=== PATIENT | male | born 1995 | race Caucasian/White ===

== ENCOUNTER 2019-06-28 16:44 | Inpatient (IN) | payer OTHER ==
[2019-06-28] MEDS ORDERED: Acetaminophen TAB* 325 MG PO PRN (17:18)
[2019-06-28] MEDS ORDERED: Al Hydrox/Mg Hydrox/Simet LIQ* 30 ML UDC PO PRN (17:18)
[2019-06-28] MEDS ORDERED: chlorproMAZINE TAB* 50 MG Q6H PRN AGITATION PO (17:18)
[2019-06-28] MEDS ORDERED: Divalproex ER TAB(*) 500 MG ONE (20:50)
[2019-06-28] MEDS ORDERED: Divalproex ER TAB(*) 500 MG PO SCH (21:00)
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
[2019-06-29] MEDS ORDERED: OLANzapine TAB* 10 MG PO PRN (10:08)
[2019-06-29] MEDS: Vitamin THERAPEUTIC TAB PO SCH (10:37)
[2019-06-29] MEDS: Thiamine TAB* 100 MG TAB PO SCH (11:30)
[2019-06-29 13:29] LABS: Urine Benzodiazepine Screen None Detected (None Detect); Urine Opiates Screen None Detected (None Detect)
[2019-06-29] MEDS: Divalproex ER TAB(*) 500 MG PO SCH (21:08)
[2019-06-29] MEDS: Lithium Carbonate TAB* 300 MG PO SCH (21:09)
[2019-06-30 07:53] LABS: HDL Cholesterol 45.9 mg/dL
[2019-06-30] MEDS: ARIPiprazole TAB* 5 MG PO SCH (08:00)
[2019-06-30] MEDS: Thiamine TAB* 100 MG TAB PO SCH (08:00)
[2019-06-30] MEDS: Vitamin THERAPEUTIC TAB PO SCH (08:01)
[2019-06-30] MEDS: Lithium Carbonate TAB* 300 MG PO SCH ×2 (08:01→19:46)
[2019-06-30] MEDS ORDERED: CMCS: diPHENhydraMINE CREAM 2%(NF) 28 gm TUBE TOPICAL PRN (08:44)
--- NOTE | 2019-06-30 10:11 | PN ---
Subjective - Subjective Date of Service: 06/30/19 Service Type: 04589 Hosp care 35 min high complexity Subjective: Nursing Report: Patient was visible on unit, Slept 7hrs overnight. Ate breakfast this morning" CC: "I had a heart attack during my last hospitalization" This patient was seen and evaluated today. She reported having chest pain and tightness and shortness of breath. Patient provided this contract writer with a letter that outlined various coping strategies and asked to contact her cousin [facility] [phone] who she plans to stay with upon discharge.These included reading , writing ,drawing, fishing , signing. She reported some itching and redness of the face. She asked about possible discharge before the end of the week. She denied side effects from medication. Objective - General Observations Appearance: Disheveled Appears Stated Age: Yes Stature: WNL Posture: Slumped Eye Contact: Average Behavior/Activity: Peculiar - Interaction Observations Attitude Towards Examiner: Cooperative Stated Mood: Irritable Affect: Labile Speech Pattern/Tone: Excessive Thought Process: Over Inclusive Perception: WNL Thought Content: Preoccupation/Ruminations Thought Process: Lethality: Paranoid Ideation Hallucination Type: Denies Delusion Type: Somatic - Cognitive Function Orientation: A&O x 4 Level of Consciousness: Awake Cognition: Impaired Fund of Knowledge, Impaired Writing Estimated Intelligence: MR Range - Medication Compliance Cooperative with Inpatient Medication Regimen: Yes - Group Participation Participates in Group Activities: Partial Assessment - Assessment Merits Inpatient Hospitalization: For Immediate Safety Clinical Impression: 23 year old Male who identifies as a female, with a history of Bipolar disorder,gender dysphoria, PTSD was transferred to from [facility] to [facility] for suicidal ideation with plan to jump from [facility]. Plan - Plan Treatment Plan: Name: KEVIN MULLEN Birthdate: 1995 [id number] # Q15 minute observation. # The patient requires psychiatric inpatient admission at this time to assure safety, receive treatment and work toward stabilization. # Labs/ documents reviewed from paperwork at [facility]. # Hospitalist consult for medical management # EKG ordered # Benadryl cream ordered for pruritus # Obtained collateral information from cousin. # Continue [place] 150mg BID. # Valproic acid level 28 #Abilify 5mg po daily # Declined alcohol rehabilitation resources and treatment # Prior hospital discharge paperwork was provided by the patient and discharge medications included Valproic acid 1000mg qhs and Haldol 5mg qhs. # Collaboration with Vice President Client Services, Vivi Fuentes #Goals before discharge include: Psychiatric Stabilization Tentative Discharge: Pending hospital course and response to treatment Vital Signs Temp Pulse Resp BP Pulse Ox 97.2 F 48 16 117/58 100 06/30/19 08:00 06/30/19 08:00 06/30/19 09:07 06/30/19 08:00 06/30/19 08:00 Continued Medication Management: Continue Outpt Medication Medications: Current Medications Al Hydrox/Mg Hydrox/Simethicone (Maalox Plus*) 30 ml PO Q4H PRN PRN Reason: INDIGESTION Aripiprazole (Abilify Tab*) 5 mg PO DAILY [facility] Last Admin: 06/30/19 08:00 Dose: 5 mg Diphenhydramine HCl (Benadryl Po*) 50 mg PO BEDTIME CONCHA Divalproex Sodium (Depakote Er Tab(*)) 1,000 mg PO BEDTIME CONCHA Last Admin: 06/29/19 21:08 Dose: 1,000 mg [place] Carbonate (S[place] Carbonate Tab*) 150 mg PO BID CONCHA Last Admin: 06/30/19 08:01 Dose: 150 mg Multivitamins (Theragran Tab*) 1 tab PO DAILY CON[facility] Last Admin: 06/30/19 08:01 Dose: 1 tab Olanzapine (Zyprexa Tab*) 10 mg PO Q8H PRN PRN Reason: AGITATION Thiamine HCl (Vitamin B-1 Tab*) 200 mg PO DAILY [facility] Last Admin: 06/30/19 08:00 Dose: 200 mg Zinc Acetate/Diphenhydramine (Banophen 2 % Cream (Nf)) 1 applic TOPICAL TID PRN ; Protocol PRN Reason: PRURITIS - Discharge Plan Discharge Plan: Inpatient Hospitalization
[2019-06-30 11:34] LABS: Troponin I 0.01 ng/mL (<0.03)
[2019-06-30 11:35] LABS: ALT 14 U/L (7-52); AST 15 U/L (13-39); Albumin 4.3 g/dL (3.2-5.2); Albumin/Globulin Ratio 1.5 (1-3); Alkaline Phosphatase 59 U/L (34-104); Anion Gap 3 mmol/L (2-11); BUN/Creatinine Ratio 19.5 (8-20); Blood Urea Nitrogen 15 mg/dL (6-24); C Reactive Protein < 1.00 mg/L (<8.01); CO2 Carbon Dioxide 31 mmol/L (22-32); Calcium 9.6 mg/dL (8.6-10.3); Chloride 105 mmol/L (101-111); EGFR African American 154.3 (>60); EGFR Non-African American 127.5 (>60); Globulin 2.8 g/dL (2-4); Glucose 72 mg/dL (70-100); Potassium 4.2 mmol/L (3.5-5.0); Sodium 139 mmol/L (135-145); Total Protein 7.1 g/dL (6.4-8.9)
[2019-06-30 11:36] LABS: ABS Eosinophils 0.2 10^3/ul (0-0.6); ABS Lymphocytes 1.9 10^3/ul (1.0-4.8); ABS Monocytes 0.5 10^3/ul (0-0.8); ABS Neutrophils 3.5 10^3/ul (1.5-7.7); Eosinophil % 2.8 %; Hematocrit 40 % (42-52); Lymphocyte % 31.2 %; Mean Corpuscular HGB Conc 35 g/dL (31-36); Mean Corpuscular Hemoglobin 32 pg (27-31); Mean Corpuscular Volume 90 fL (80-94); Mean Platelet Volume 7.4 fL (7.4-10.4); Nucleated Red Blood Cells % 0.1; Platelet Count 275 10^3/uL (150-450); Red Blood Count 4.43 10^6 /uL (4.18-5.48); Red Cell Distribution Width 14 % (10-15)
[2019-06-30 14:37] LABS: Troponin I 0.04 ng/mL (<0.03)
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
[2019-06-30 18:39] LABS: Troponin I 0.03 ng/mL (<0.03)
[2019-06-30] MEDS: Divalproex ER TAB(*) 500 MG PO SCH (19:46)
[2019-06-30] MEDS ORDERED: diPHENhydraMINE PO* 50 MG PO SCH (21:00)
[2019-07-01 08:21] VITALS: BP 120/70
[2019-07-01] MEDS: Vitamin THERAPEUTIC TAB PO SCH (08:24)
[2019-07-01] MEDS: Lithium Carbonate TAB* 300 MG PO SCH (08:24)
[2019-07-01] MEDS: ARIPiprazole TAB* 5 MG PO SCH (08:25)
[2019-07-01] MEDS: Thiamine TAB* 100 MG TAB PO SCH (08:25)
--- NOTE | 2019-07-01 10:17 | PN ---
Subjective - Subjective Date of Service: 07/01/19 Service Type: [id number] Hosp care 35 min high complexity Subjective: Nursing Report: Patient was visible on unit, no behavioral incidents. Slept 6.75hrs overnight. CC: "I want to be discharged This patient was seen and evaluated today. The patient provided permission to contact Dr. Betts. The patient reported that no family member is available to confirm placement. The patient declined long acting anti-psychotic injection. The patient said that she has a that she needs to attend so she needs to be discharged today. She reported having adequate appetite and sleep. Per nursing no behavioral issues or overnight events reported. Patient reported that she is tolerating medications without side effects. The patient denied chest pain, shortness of breath, fever. Assessment - Assessment Merits Inpatient Hospitalization: For Immediate Safety Clinical Impression: 23 year old Male who identifies as a female, with a history of Bipolar disorder,gender dysphoria, PTSD was transferred to from [facility] to [facility] for suicidal ideation with plan to [facility]. Plan - Plan Treatment Plan: Name: KEVIN MULLEN Birthdate: 1995 [id number] # Q30 minute observation. # The patient requires psychiatric inpatient admission at this time to assure safety, receive treatment and work toward stabilization. # Labs/ documents reviewed from paperwork at [facility]. # Collateral information obtained reveals that the patient often makes unfounded statements and often is homeless. # Hospitalist evaluated patient for for medical management and signed off # Benadryl cream ordered for pruritus # Obtained collateral information from cousin. # Continue Talpa 150mg BID. # Valproic acid level 28 #Abilify 5mg po daily # Declined alcohol rehabilitation resources and treatment # Prior hospital discharge paperwork was provided by the patient and discharge medications included Valproic acid 1000mg qhs and Haldol 5mg qhs. # Collaboration with Taker Off Braker Machine, Vivi Fuentes #Goals before discharge include: Psychiatric Stabilization Tentative Discharge: Pending hospital course and response to treatment Continued Medication Management: Continue Outpt Medication Medications: Current Medications Al Hydrox/Mg Hydrox/Simethicone (Maalox Plus*) 30 ml PO Q4H PRN PRN Reason: INDIGESTION Aripiprazole (Abilify Tab*) 5 mg PO DAILY CONCHA Last Admin: 07/01/19 08:25 Dose: 5 mg Diphenhydramine HCl (Benadryl Po*) 50 mg PO BEDTIME CONCHA Last Admin: 06/30/19 19:45 Dose: 50 mg Divalproex Sodium (Depakote Er Tab(*)) 1,000 mg PO BEDTIME CONCHA Last Admin: 06/30/19 19:46 Dose: 1,000 mg Talpa Carbonate (Talpa Carbonate Tab*) 150 mg PO BID CONCHA Last Admin: 07/01/19 08:24 Dose: 150 mg Multivitamins (Theragran Tab*) 1 tab PO DAILY CONCHA Last Admin: 07/01/19 08:24 Dose: 1 tab Olanzapine (Zyprexa Tab*) 10 mg PO Q8H PRN PRN Reason: AGITATION Thiamine HCl (Vitamin B-1 Tab*) 200 mg PO DAILY [facility] Last Admin: 07/01/19 08:25 Dose: 200 mg Zinc Acetate/Diphenhydramine (Banophen 2 % Cream (Nf)) 1 applic TOPICAL TID PRN ; Protocol PRN Reason: PRURITIS - Discharge Plan Discharge Plan: Outpatient Follow Up Outpatient Program: Family services
[2019-07-01] MEDS ORDERED: Aspirin EC TAB* 325 MG PO PRN (11:03)
--- NOTE | 2019-07-01 11:18 | PN ---
Hospitalist Progress Note Date of Service: 07/01/19 Given chest pain, EKG changes, mildly elevated troponin with markedly low risk for ACS and PE ruled out, will treat this as presumptive pericarditis of unclear cause (possibly viral syndrome vs idiopathic). Pericarditis is not known to be a adverse effect to any medications patient is on. Prescribed Aspirin as needed for chest pain, patient is not currently having chest pain. EKG changes improved with cessation of chest pain. No further risk stratification for ACS is indicated with echo or stress test. We will sign off at this time, thank you for this consultation. Please call for recurrence in chest pain or any further questions.
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
== END 2019-07-01 16:40 | disposition home or self-care (01) | DRG 753 ==
LOC: BSU 16:44
PROVIDERS: ADMIT Psychiatry & Neurology Addiction Psychiatry; ATTEND Psychiatry & Neurology Addiction Psychiatry
DX: F31.9 Bipolar disorder, unspecified (principal); R45.851 Suicidal ideations; I31.9 Disease of pericardium, unspecified; F41.9 Anxiety disorder, unspecified; F43.10 Post-traumatic stress disorder, unspecified; F70 Mild intellectual disabilities; G40.909 Epilepsy, unspecified, not intractable, without status epilepticus; F90.9 Attention-deficit hyperactivity disorder, unspecified type; F64.9 Gender identity disorder, unspecified; Z62.810 Personal history of physical and sexual abuse in childhood; I25.2 Old myocardial infarction; Z79.899 Other long term (current) drug therapy; Z88.6 Allergy status to analgesic agent; Z88.8 Allergy status to other drugs, medicaments and biological substances; Z91.012 Allergy to eggs; Z91.040 Latex allergy status; Z91.011 Allergy to milk products; Z91.018 Allergy to other foods; Z86.73 Personal history of transient ischemic attack (TIA), and cerebral infarction without residual deficits
CPT/HCPCS: 36415; 80053; 80061; 80164; 80307; 83036; 84484; 85025; 85379; 86140; 93005; 99222; 99233; 99238; A9270-GY; G0480